=== PATIENT | female | born 1995 | race Two or more races ===

== ENCOUNTER 2019-08-11 13:12 | Observation (INO) | payer OTHER ==
[~2019-08-11] VITALS: Ht 157.5 cm; Wt 68.9 kg
[2019-08-11 13:48] VITALS: BP 116/75
== END 2019-08-11 16:00 | disposition home or self-care (01) | DRG 566 ==
LOC: ER 13:12 → LDRP 14:09
PROVIDERS: ADMIT Specialist; ATTEND Specialist
DX: O9A.213 Injury, poisoning and certain other consequences of external causes complicating pregnancy, third trimester (principal); O36.8130 Decreased fetal movements, third trimester, not applicable or unspecified; Z3A.34 34 weeks gestation of pregnancy; W19.XXXA Unspecified fall, initial encounter; Y93.89 Activity, other specified; Y92.9 Unspecified place or not applicable; Y99.9 Unspecified external cause status
CPT/HCPCS: 84112; 99284; G0378